=== PATIENT | female | born 1990 | race Caucasian/White ===

== ENCOUNTER 2017-09-17 14:35 | Emergency (ER) | payer BC, OTHER ==
[~2017-09-17] VITALS: Ht 162.6 cm; Wt 51.0 kg
[~2017-09-17 14:35] MED LIST: PRENTAB7
[2017-09-17 14:37] VITALS: BP 110/94; PULSE 79; RESP 16; TEMP 98.6; O2SAT 99
--- NOTE | 2017-09-17 15:25 | PD ---
HPI Chief Complaint: Related Problem Time Seen by Provider: 15:06 Travel History International Travel<30 days: No Contact w/Intl Traveler<30days: No Traveled to known affect area: No History of Present Illness HPI The patient was seen and examined in the presence of the nurse. This patient complains of some vaginal spotting and pelvic cramping intermittently for the last 3-4 days. Symptoms severity is mild to moderate. She reports she thinks she is 9 weeks using her last menstrual dates. She had one visit and they confirm but did not do an ultrasound. No alleviating factors. No exacerbating factors. She is not having any fever or urinary complaints. PFSH Past Medical History ?: LMP: 07/13/17 Social History Alcohol Use: No Tobacco Use: No Substance Use: No Allergies-Medications (Allergen,Severity, Reaction): Coded Allergies: erythromycin base (Unverified Allergy, Severe, Hives, 09/17/17) Reported Meds & Prescriptions Reported Meds & Active Scripts Active Reported Vitamins 28-0.8 mg ( Vit W/ Ferrous Fumara) 28 Mg Iron-800 Mcg Tab Review of Systems General / Constitutional: No: Fever Eyes: No: Visual changes HENT: No: Headaches Cardiovascular: No: Chest Pain or Discomfort Respiratory: No: Shortness of Breath Gastrointestinal: No: Abdominal Pain Genitourinary: Positive: Pelvic Pain, Vaginal Bleeding, No: Dysuria Musculoskeletal: No: Pain Skin: No Rash Neurologic: No: Weakness Psychiatric: No: Depression Endocrine: No: Polydipsia Hematologic/Lymphatic: No: Easy Bruising Physical Exam Narrative GENERAL: Well-nourished, well-developed patient in no apparent distress. SKIN: Focused skin assessment reveals no rash and nodules. Skin is Warm and dry. HEAD: Atraumatic. Normocephalic. EYES: Pupils equal and round. No scleral icterus. No injection or drainage. ENT: No nasal bleeding or discharge. Mucous membranes pink and moist. NECK: Trachea midline. No JVD. CARDIOVASCULAR: Regular rate and rhythm. No murmur appreciated. RESPIRATORY: No accessory muscle use. Clear to auscultation. Breath sounds equal bilaterally. GASTROINTESTINAL: Abdomen soft, non-tender, nondistended. Hepatic and splenic margins not palpable. MUSCULOSKELETAL: No obvious deformities. No clubbing. No cyanosis. No edema. NEUROLOGICAL: Awake and alert. No obvious cranial nerve deficits. Motor grossly within normal limits. Normal speech. PSYCHIATRIC: Appropriate mood and affect; insight and judgment normal. Pelvic: Cervix is closed without motion tenderness. No blood or discharge in the vault. Data Data Last Documented VS Vital Signs Date Time Temp Pulse Resp B/P (MAP) Pulse Ox O2 Delivery O2 Flow Rate FiO2 09/17/17 14:37 98.6 79 16 110/94 (99) 99 Orders Orders Iv Access Insert/Monitor (09/17/17 15:20) Complete Blood Count With Diff (09/17/17 15:20) Beta Hcg (Quant/Titer) (09/17/17 15:20) Us Pelvis Preg W Transvaginal (09/17/17 ) Labs Laboratory Tests Test 09/17/17 15:50 White Blood Count 5.8 TH/MM3 Red Blood Count 4.55 MIL/MM3 Hemoglobin 12.8 GM/DL Hematocrit 38.0 % Mean Corpuscular Volume 83.5 FL Mean Corpuscular Hemoglobin 28.2 PG Mean Corpuscular Hemoglobin Concent 33.7 % Red Cell Distribution Width 15.6 % Platelet Count 216 TH/MM3 Mean Platelet Volume 9.2 FL Neutrophils (%) (Auto) 62.3 % Lymphocytes (%) (Auto) 26.0 % Monocytes (%) (Auto) 10.5 % Eosinophils (%) (Auto) 0.9 % Basophils (%) (Auto) 0.3 % Neutrophils # (Auto) 3.6 TH/MM3 Lymphocytes # (Auto) 1.5 TH/MM3 Monocytes # (Auto) 0.6 TH/MM3 Eosinophils # (Auto) 0.1 TH/MM3 Basophils # (Auto) 0.0 TH/MM3 CBC Comment DIFF FINAL Differential Comment Human Chorionic Gonadotropin, Quant [id number] MIU/ML [facility] Medical Decision Making Medical Screen Exam Complete: Yes Emergency Medical Condition: Yes Medical Record Reviewed: Yes Differential Diagnosis Spontaneous miscarriage, ectopic , threatened Narrative Course I have reviewed the patient's electronic medical record. I reviewed her blood bank file. She is A+ blood type. Was last here in 2010 I did a bedside transabdominal ultrasound. I'm not able to identify an intrauterine fetus IV placed CBC is normal Beta hCG is 17,000 I did a formal radiology transvaginal ultrasound. They see what looks like a gestational sac measured at 5 weeks and 4 days in the uterus but cannot identify a fetus I reviewed this in detail with patient Recommend pelvic rest She has an OB provider she will call tomorrow I don't have any clinical suspicion of ectopic Diagnosis Primary Impression: Threatened affecting intrauterine Additional Instructions: Utilize pelvic rest Call OB provider tomorrow for follow-up Med/Other Pt SpecificInfo: Other Disposition: 01 DISCHARGE HOME Condition: Stable Klaus Hou MD Sep 17, 2017 15:25
[2017-09-17 16:23] LABS: AUTOMATED NEUTROPHIL # 3.6 TH/MM3 (1.8-7.7); BASOPHIL % 0.3 % (0.0-2.0); EOSINOPHIL # 0.1 TH/MM3 (0-0.4); EOSINOPHIL % 0.9 % (0.0-4.0); HEMO FLAGS DIFF FINAL; LYMPHOCYTE # 1.5 TH/MM3 (1.0-4.8); MEAN CELL VOLUME 83.5 FL (80.0-100.0); MEAN CORPUSCULAR HEMOGLOBIN 28.2 PG (27.0-34.0); MEAN CORPUSCULAR HGB CONC 33.7 % (32.0-36.0); MONO % 10.5 % (0.0-8.0); NEUT % 62.3 % (16.0-70.0); PLATELET COUNT 216 TH/MM3 (150-450); RED BLOOD COUNT 4.55 MIL/MM3 (4.00-5.30); RED CELL DISTRIBUTION WIDTH 15.6 % (11.6-17.2); WHITE BLOOD COUNT 5.8 TH/MM3 (4.0-11.0)
[2017-09-17 16:40] LABS: BETA HCG QUANT 17328 MIU/ML (0-5)
--- NOTE | 2017-09-17 17:36 | RADRPT ---
EXAM DATE/TIME: 09/17/2017 16:54 [place] COMPARISON: No previous studies available for comparison. INDICATIONS : Pelvic pain. LAB(S): Beta-[facility]C MEDICAL HISTORY : Glasses. SURGICAL HISTORY : None. ENCOUNTER: Initial ACUITY: 2 weeks PAIN SCORE: 3/10 LOCATION: Bilateral pelvis MEASUREMENTS: UTERUS: 10.4 x 7.5 x 5.3 cm ENDOMETRIAL STRIPE: 17 mm RIGHT OVARY: 2.4 x 1.6 x 1.7 cm LEFT OVARY: 2.4 x 1.5 x 1.3 cm FREE FLUID: No significant. FINDINGS: UTERUS: The myometrium has homogeneous echotexture without mass. There is an ovoid cystic structure within th e endometrium likely representing a gestational sac. It measures 1.7 x 0.8 x 1.5 cm with mean sac stef meter 1.34 cm consistent with gestational age of 5 weeks and 4 days. It contains no definite yolk sac . There appears to contain an eccentric thin septation. No embryo is identified. Hypoechoic area spencer cent to the gestational sac measures approximately 15 mm. RIGHT OVARY: Ovary contains no mass or significant cystic lesion. LEFT OVARY: Ovary contains no mass or significant cystic lesion. MISCELLANEOUS: No significant free fluid. CONCLUSION: 1. There is a gestational sac within the endometrium with estimated age of 5 weeks and 4 days. Howeve r, no yolk sac or embryo is identified. There appears to be a thin eccentric septation. 2. Possible small subchorionic hemorrhage adjacent to the gestational sac. Martínez Kim MD on September 17, 2017 at 17:31 Board Certified Radiologist. This report was verified electronically.
== END 2017-09-17 20:06 | disposition home or self-care (01) ==
LOC: NEPE 14:35
DX: O20.0 Threatened abortion (principal); Z3A.09 9 weeks gestation of pregnancy
CPT/HCPCS: 76801; 76817; 84702; 85025; 99284